=== PATIENT | male | born 1990 | race Caucasian/White ===

== ENCOUNTER 2017-02-09 00:06 | Emergency (ER) | payer SELFPAY ==
[~2017-02-09] VITALS: Ht 180.3 cm; Wt 61.1 kg
[2017-02-09 00:11] VITALS: BP 121/80; PULSE 89; RESP 16; TEMP 98.7; O2SAT 95
[2017-02-09] MEDS ORDERED: SODIUM CHLOR 0.9% 1000 ML INJ 1,000 ML IV SCH (00:22)
--- NOTE | 2017-02-09 00:26 | PD ---
HPI Chief Complaint: GI Complaint Time Seen by Provider: 00:22 Travel History International Travel<30 days: No Contact w/Intl Traveler<30days: No Traveled to known affect area: No History of Present Illness HPI 26-year-old male presents to the emergency department for complaint of 5 days of vomiting. Patient denies any diarrhea. Patient's continued to have good urine output. Patient is able to tolerate small amounts of fluids but no solids. Patient states symptoms began after eating 4 pieces of pizza at [employer]. No dietary indiscretion or well water ingestion or foreign travel. Significant other ate the same food is asymptomatic. Patient's had no fever or chills. Patient has had bilious emesis with no coffee-ground emesis and no hematemesis. No melena hematochezia. No prior history of abdominal pain. Patient denies personal history of gastritis peptic ulcer disease biliary colic pancreatitis inflammatory bowel disease Crohn's ulcer colitis or known diverticular disease. Patient is status post appendectomy. Patient takes no prescription medications. Patient occasionally drinks alcohol socially but not recently. Significant other has given him Pedialyte PFSH Past Medical History Narrative Medical Appendectomy; occasional alcohol use; nursing notes reviewed Medical History: Denies Significant Hx Diminished Hearing: No Tetanus Vaccination: > 5 Years Influenza Vaccination: No Past Surgical History Appendectomy: Yes Social History Alcohol Use: Yes (Socially) Tobacco Use: No Substance Use: No Allergies-Medications (Allergen,Severity, Reaction): Coded Allergies: No Known Allergies (Unverified , 02/09/17) Narrative Medication None Review of Systems Except as stated in HPI: all other systems reviewed are Neg General / Constitutional: No: Fever, Chills HENT: No: Congestion Cardiovascular: No: Chest Pain or Discomfort Respiratory: No: Shortness of Breath Gastrointestinal: Positive: Nausea, Vomiting, Constipation, No: Diarrhea, Abdominal Pain, Hematemesis, Hematochezia, Loss of Appetite Genitourinary: No: Urgency, Frequency, Dysuria, Flank Pain Musculoskeletal: No: Weakness Skin: No Rash Neurologic: No: Weakness Psychiatric: No: Substance Abuse Hematologic/Lymphatic: No: Lymph Node Enlargement Physical Exam Narrative GENERAL: Well-developed well-nourished male in no acute distress no respiratory distress; triage vital signs found to be in normal range SKIN: Warm and dry. HEAD: Normocephalic. EYES: No scleral icterus. No injection or drainage. NECK: Supple, trachea midline. No JVD or lymphadenopathy. CARDIOVASCULAR: Regular rate and rhythm without murmurs, gallops, or rubs. RESPIRATORY: Breath sounds equal bilaterally. No accessory muscle use. GASTROINTESTINAL: Abdomen soft, non-tender, nondistended. MUSCULOSKELETAL: No cyanosis, or edema. BACK: Nontender without obvious deformity. No CVA tenderness. Data Data Last Documented VS Vital Signs Date Time Temp Pulse Resp B/P (MAP) Pulse Ox O2 Delivery O2 Flow Rate FiO2 02/09/17 02:20 76 18 134/72 (92) 96 Room Air 02/09/17 01:25 98.7 Orders Orders Complete Blood Count With Diff (02/09/17 00:22) Comprehensive Metabolic Panel (02/09/17 00:22) Lipase (02/09/17 00:22) Urinalysis - C+S If Indicated (02/09/17 00:22) Iv Access Insert/Monitor (02/09/17 00:22) Ecg Monitoring (02/09/17 00:22) Oximetry (02/09/17 00:22) Ondansetron Inj (Zofran Inj) (02/09/17 00:30) Sodium Chlor 0.9% 1000 Ml Inj (Ns 1000 M (02/09/17 00:22) Sodium Chloride 0.9% Flush (Ns Flush) (02/09/17 00:30) Ct Abd/Pel W Iv Contrast(Rout) (02/09/17 ) Ecg Monitoring (02/09/17 02:03) Famotidine Inj (Pepcid Inj) (02/09/17 02:15) Sodium Chloride 0.9% Flush (Ns Flush) (02/09/17 02:15) Ondansetron Inj (Zofran Inj) (02/09/17 03:00) Iohexol 350 Inj (Omnipaque 350 Inj) (02/09/17 02:45) Ed Discharge Order (02/09/17 03:32) Labs Laboratory Tests Test 02/09/17 00:25 02/09/17 02:07 White Blood Count 15.9 TH/MM3 Red Blood Count 5.45 MIL/MM3 Hemoglobin 15.9 GM/DL Hematocrit 49.0 % Mean Corpuscular Volume 90.0 FL Mean Corpuscular Hemoglobin 29.2 PG Mean Corpuscular Hemoglobin Concent 32.4 % Red Cell Distribution Width 11.8 % Platelet Count 277 TH/MM3 Mean Platelet Volume 7.1 FL Neutrophils (%) (Auto) 75.5 % Lymphocytes (%) (Auto) 16.6 % Monocytes (%) (Auto) 7.2 % Eosinophils (%) (Auto) 0.3 % Basophils (%) (Auto) 0.4 % Neutrophils # (Auto) 12.1 TH/MM3 Lymphocytes # (Auto) 2.6 TH/MM3 Monocytes # (Auto) 1.1 TH/MM3 Eosinophils # (Auto) 0.0 TH/MM3 Basophils # (Auto) 0.1 TH/MM3 CBC Comment DIFF FINAL Differential Comment Blood Urea Nitrogen 17 MG/DL Creatinine 0.95 MG/DL Random Glucose 96 MG/DL Total Protein 7.5 GM/DL Albumin 3.8 GM/DL Calcium Level 8.8 MG/DL Alkaline Phosphatase 62 U/L Aspartate Amino Transf (AST/SGOT) 17 U/L Alanine Aminotransferase (ALT/SGPT) 26 U/L Total Bilirubin 0.5 MG/DL Sodium Level 131 MEQ/L Potassium Level 3.7 MEQ/L Chloride Level 96 MEQ/L Carbon Dioxide Level 27.4 MEQ/L Anion Gap 8 MEQ/L Estimat Glomerular Filtration Rate 96 ML/MIN Lipase 113 U/L Urine Color EMMY Urine Turbidity CLEAR Urine pH 6.5 Urine Specific Halma 1.027 Urine Protein NEG mg/dL Urine Glucose (UA) NEG mg/dL Urine Ketones 15 mg/dL Urine Occult Blood NEG Urine Nitrite NEG Urine Bilirubin NEG Urine Leukocyte Esterase NEG Urine RBC 0-2 /hpf Urine WBC 0-2 /hpf Urine Squamous Epithelial Cells 0-5 /hpf Urine Bacteria NONE /hpf Microscopic Urinalysis Comment CULT NOT INDICATED MDM Medical Decision Making Medical Screen Exam Complete: Yes Emergency Medical Condition: Yes Medical Record Reviewed: Yes Interpretation(s) CBC & BMP Diagram 02/09/17 00:25 Total Protein 7.5, Albumin 3.8, Calcium Level 8.8, Alkaline Phosphatase 62, Aspartate Amino Transf (AST/SGOT) 17, Alanine Aminotransferase (ALT/SGPT) 26, Total Bilirubin 0.5 Vital Signs Date Time Temp Pulse Resp B/P (MAP) Pulse Ox O2 Delivery O2 Flow Rate FiO2 02/09/17 02:20 76 18 134/72 (92) 96 Room Air 02/09/17 01:25 98.7 75 16 123/72 (89) 97 Room Air 02/09/17 01:09 122/69 (86) 02/09/17 01:00 16 94 Room Air 02/09/17 00:11 98.7 89 16 121/80 (94) 95 CT abd/pel: CONCLUSION: 1. The stomach is mildly distended. There is mild constipation. No obstruction, free fluid or free air. Small right renal cyst. Antwon Lee MD on February 09, 2017 at 2:59 Board Certified Radiologist. This report was verified electronically. Differential Diagnosis Vomiting, bowel obstruction, biliary colic, cholecystitis, pancreatitis, peptic ulcer disease, perforated viscus, inflammatory bowel disease, gastroenteritis, electronic disturbance, dehydration Narrative Course IV access obtained specimens collected and sent for resulting patient administered 1 L normal saline and Zofran 4 mg IV along with Pepcid 20 mg IV White count is 15,000; CT abdomen and pelvis ordered CT abdomen and pelvis reveals no acute intra-abdominal process mild constipation Patient clinically improved off and additional liter of normal saline patient refuses any further IV fluids able take fluids by mouth does complain of nausea additional dose of Zofran administered and no further nausea or vomiting Patient is stable for outpatient management Diagnosis Primary Impression: Vomiting Referrals: Primary Care Physician call for appointment Patient Instructions: General Instructions Departure Forms: Tests/Procedures, Work Release Special Instructions: no work x2 days Additional Instructions: Follow clear liquid diet for next 12 to 24 hours advance diet as tolerated to bland/Mayela diet and advance to regular diet as tolerated Increase fluid hydration Monitor temperature for fever take acetaminophen/Tylenol as needed for fever 100.4F or greater Follow-up with your primary care provider Return to the emergency department for any concerns or change in condition No work 2 days Med/Other Pt SpecificInfo: Prescription(s) given Scripts Ondansetron Odt (Zofran Odt) 4 Mg Tab 4 MG SL Q6HR Y for Nausea/Vomiting, #10 TAB 0 Refills Prov: Zoe Murguia MD 02/09/17 Disposition: 01 DISCHARGE HOME Condition: Stable Zoe Murguia MD Feb 09, 2017 00:25
[2017-02-09] MEDS ORDERED: ONDANSETRON HCL 4 MG/2 ML VIAL IVP ONE (00:30)
[2017-02-09] MEDS ORDERED: SODIUM CHLORIDE 0.9% FLUSH 10 ML FLUSH IV FLUSH PRN ×2 (00:30→02:15)
[2017-02-09 00:49] LABS: AUTOMATED NEUTROPHIL # 12.1 TH/MM3 (1.8-7.7); BASOPHIL # 0.1 TH/MM3 (0-0.2); BASOPHIL % 0.4 % (0.0-2.0); EOSINOPHIL % 0.3 % (0.0-4.0); HEMO FLAGS DIFF FINAL; LYMPH % 16.6 % (9.0-44.0); LYMPHOCYTE # 2.6 TH/MM3 (1.0-4.8); MEAN CORPUSCULAR HEMOGLOBIN 29.2 PG (27.0-34.0); MEAN CORPUSCULAR HGB CONC 32.4 % (32.0-36.0); MONO % 7.2 % (0.0-8.0); NEUT % 75.5 % (16.0-70.0); PLATELET COUNT 277 TH/MM3 (150-450); RED BLOOD COUNT 5.45 MIL/MM3 (4.50-5.90); RED CELL DISTRIBUTION WIDTH 11.8 % (11.6-17.2); WHITE BLOOD COUNT 15.9 TH/MM3 (4.0-11.0)
[2017-02-09 00:58] LABS: CHLORIDE 96 MEQ/L (98-107); POTASSIUM 3.7 MEQ/L (3.5-5.1); SODIUM (NA) 131 MEQ/L (136-145)
[2017-02-09 01:00] VITALS: RESP 16; O2SAT 94
[2017-02-09 01:02] LABS: ANION GAP 8 MEQ/L (5-15); BICARBONATE 27.4 MEQ/L (21.0-32.0); BLOOD UREA NITROGEN 17 MG/DL (7-18)
[2017-02-09 01:04] LABS: ALT (GPT) 26 U/L (12-78); AST (GOT) 17 U/L (15-37)
[2017-02-09 01:05] LABS: GLOMERULAR FILTRATION RATE 96 ML/MIN (>89)
[2017-02-09 01:06] LABS: TOTAL BILIRUBIN ADULT 0.5 MG/DL (0.2-1.0)
[2017-02-09 01:07] LABS: ALKALINE PHOSPHATASE 62 U/L (45-117)
[2017-02-09 01:09] VITALS: BP 122/69
[2017-02-09 01:25] VITALS: BP 123/72; PULSE 75; RESP 16; TEMP 98.7; O2SAT 97
[2017-02-09] MEDS ORDERED: FAMOTIDINE 20 MG/2 ML VIAL IV PUSH ONE (02:15)
[2017-02-09 02:16] LABS: BLOOD, URINE NEG (NEG); GLUCOSE,URINE NEG (NEG); KETONE, URINE 15 mg/dL (NEG); NITRITE,URINE NEG (NEG); PH, URINE 6.5 (5.0-8.5)
[2017-02-09 02:20] VITALS: BP 134/72; PULSE 76; RESP 18; O2SAT 96
[2017-02-09] MEDS ORDERED: IOHEXOL 350 MG/ML 10 ML VIAL (for RAD DIAG) IVCONTRAST ONE (02:45)
[2017-02-09 02:46] LABS: COMMENT (UR) CULT NOT INDICATED; CULTURE IF INDICATED CULT NOT INDICATED; RBC, URINE 0-2 /hpf (0-3); SQUAMOUS EPITHELIAL CELL URINE 0-5 /hpf (0-5); URINE COLOR AMBER (YELLW/STRAW); WBC, URINE 0-2 /hpf (0-5)
[2017-02-09] MEDS ORDERED: ONDANSETRON HCL 4 MG/2 ML VIAL IV PUSH ONE (03:00)
--- NOTE | 2017-02-09 03:04 | RADRPT ---
EXAM DATE/TIME: 02/09/2017 02:40 [facility] COMPARISON: No previous studies available for comparison. INDICATIONS : Vomiting and constipation for 5 days IV CONTRAST: 96 cc Omnipaque 350 (iohexol) IV ORAL CONTRAST: No oral contrast ingested. RADIATION DOSE: 4.15 CTDIvol (mGy) MEDICAL HISTORY : None SURGICAL HISTORY : Appendectomy. ENCOUNTER: Initial ACUITY: 4 - 6 days PAIN SCALE: 9/10 LOCATION: medial abdomen TECHNIQUE: Volumetric scanning of the abdomen and pelvis was performed. Using automated exposure control and ad justment of the mA and/or kV according to patient size, radiation dose was kept as low as reasonably achievable to obtain optimal diagnostic quality images. DICOM format image data is available electro nically for review and comparison. FINDINGS: LOWER LUNGS: The visualized lower lungs are clear. LIVER: Homogeneous density without lesion. There is no dilation of the biliary tree. No calcified gallston es. SPLEEN: Normal size without lesion. PANCREAS: Within normal limits. KIDNEYS: Normal in size and shape. There is no mass, stone or hydronephrosis. ADRENAL GLANDS: Within normal limits. VASCULAR: There is no aortic aneurysm. BOWEL/MESENTERY: The stomach, small bowel, and colon demonstrate no acute abnormality. There is no free intraperitone al air or fluid. ABDOMINAL WALL: Within normal limits. RETROPERITONEUM: There is no lymphadenopathy. BLADDER: No wall thickening or mass. REPRODUCTIVE: Within normal limits. INGUINAL: There is no lymphadenopathy or hernia. MUSCULOSKELETAL: Within normal limits for patient age. CONCLUSION: 1. The stomach is mildly distended. There is mild constipation. No obstruction, free fluid or free ai r. Small right renal cyst. Antwon Lee MD on February 09, 2017 at 2:59 Board Certified Radiologist. This report was verified electronically.
[2017-02-09] MEDS ORDERED: ZOFR4TAB3 SL (03:37)
[2017-02-09 04:07] VITALS: BP 162/91; TEMP 98.8
== END 2017-02-09 04:07 | disposition home or self-care (01) ==
LOC: PHED 00:06
DX: R11.10 Vomiting, unspecified (principal)
CPT/HCPCS: 74177; 80053; 81001; 83690; 85025; 96361; 96374; 96375; 96376; 99285; J2405; J7030; Q9967

== ENCOUNTER 2017-06-26 11:55 | Emergency (ER) | payer SELFPAY ==
[~2017-06-26] VITALS: Ht 180.3 cm; Wt 69.6 kg
[~2017-06-26 11:55] MED LIST: ZOFR4TAB3 SL
[2017-06-26 12:00] VITALS: BP 121/64; PULSE 81; RESP 18; TEMP 97.9; O2SAT 98
[2017-06-26] MEDS ORDERED: LIDOCAINE 1%/EPINEPHrine 1:100,000 SOLN 20 ML VIAL INFIL ONE (12:30)
[2017-06-26] MEDS ORDERED: BACT800T5 PO (12:41)
[2017-06-26] MEDS ORDERED: DICL75TA PO (12:41)
--- NOTE | 2017-06-26 12:45 | PD ---
HPI Chief Complaint: Skin Problem Time Seen by Provider: 12:23 Travel History International Travel<30 days: No Contact w/Intl Traveler<30days: No Traveled to known affect area: No History of Present Illness HPI 27-year-old male that presents to the ED for evaluation of lump to the left jaw. Patient has had this for about 3-4 weeks. Per patient he started like a small pimple. Per patient is presently getting worse. Per patient he took an antibiotic from his girlfriend who was having some dental procedures some relief and improvement of the symptoms continued and the swelling still there. Patient himself denies any dental pain. Per patient he thought he might be coming from his tooth. He denies any urinary or bowel movement issues. No chest pain or shortness of breath. No fevers chills or sweats. No history of drug abuse. No allergies to medication. He is not sure what antibiotic he took but thinks it was penicillin. PFSH Past Medical History Diminished Hearing: No Past Surgical History Appendectomy: Yes Social History Alcohol Use: Yes (Socially) Tobacco Use: No Substance Use: No Allergies-Medications (Allergen,Severity, Reaction): Coded Allergies: No Known Allergies (Unverified Adverse Reaction, Unknown, 06/26/17) Reported Meds & Prescriptions Reported Meds & Active Scripts Active Diclofenac Sodium DR (Diclofenac Sodium) 75 Mg Tabdr 75 Mg PO BID PRN Bactrim DS (Sulfamethoxazole-Trimethoprim) 800-160 Mg Tab 1 Tab PO BID 10 Days Zofran Odt (Ondansetron Odt) 4 Mg Tab 4 Mg SL Q6HR PRN Review of Systems Except as stated in HPI: all other systems reviewed are Neg Physical Exam Narrative GENERAL: SKIN: Warm and dry. HEAD: Atraumatic. Normocephalic. EYES: Pupils equal and round. No scleral icterus. No injection or drainage. ENT: No nasal bleeding or discharge. Mucous membranes pink and moist. Tongue is midline. No uvula deviation. Patient has a abscess/cyst on the left lower jaw. About 1.5 cm in diameter mobile, tender and erythematous. Purulence noted. NECK: Trachea midline. No JVD. CARDIOVASCULAR: Regular rate and rhythm. RESPIRATORY: No accessory muscle use. Clear to auscultation. Breath sounds equal bilaterally. GASTROINTESTINAL: Abdomen soft, non-tender, nondistended. Hepatic and splenic margins not palpable. MUSCULOSKELETAL: Extremities without clubbing, cyanosis, or edema. No obvious deformities. NEUROLOGICAL: Awake and alert. No obvious cranial nerve deficits. Motor grossly within normal limits. Five out of 5 muscle strength in the arms and legs. Normal speech. PSYCHIATRIC: Appropriate mood and affect; insight and judgment normal. Data Data Last Documented VS Vital Signs Date Time Temp Pulse Resp B/P (MAP) Pulse Ox O2 Delivery O2 Flow Rate FiO2 06/26/17 12:00 97.9 81 18 121/64 (83) 98 Orders Orders Wound Culture And Gram Stain (06/26/17 12:23) Wound Care (06/26/17 12:23) Lidocai-Epi 1%-1:100,000 Inj (Xylocaine- (06/26/17 12:30) MDM Medical Decision Making Medical Screen Exam Complete: Yes Emergency Medical Condition: Yes Medical Record Reviewed: Yes Differential Diagnosis abscess versus dental infection versus infected cyst Narrative Course 27-year-old male that presents to the ED for evaluation of skin abscesses/cyst. Patient was properly examined and was found to have signs and symptoms consistent with appears to be an infected cyst on the left lower jaw. Per recommendation his incision and drainage. Patient agrees. Patient will be started on Bactrim and diclofenac sodium. Cultures were taken. Told to follow closely with PCP. See ED worsening symptoms. Procedures Procedure Narrative After the risks and benefits were discussed the following procedure was performed: INCISION AND DRAINAGE OF ABSCESS: The area was prepped and was sterilely draped. A subcutaneous wheal of 1 % Xylocaine with a total number 5 mL was used to anesthetize the area. The area was properly anesthetized. A number 11 scalpel was used to make a 0.5 -cm incision across the area of the abscess. Cultures were obtained. The abscess was drained an irrigated with normal saline. Quarter inch iodoform packing was placed in the wound. Sterile dressing applied. Patient advised to have packing removed in two days. Diagnosis Primary Impression: Infected cyst of skin Patient Instructions: General Instructions Additional Instructions: Change dressings daily. Motrin or Tylenol for pain. Warm compresses. recheck in 48 hours if no improvement. Take meds as prescribed. Med/Other Pt SpecificInfo: Prescription(s) given Scripts Diclofenac Sodium (Diclofenac Sodium DR) 75 Mg Tabdr 75 MG PO BID Y for PAIN SCALE 1 TO 10, #20 TAB 0 Refills Prov: Linda Salmeron MD 06/26/17 Sulfamethoxazole-Trimethoprim (Bactrim DS) 800-160 Mg Tab 1 TAB PO BID for Infection for 10 Days, #20 TAB 0 Refills Prov: Linda Salmeron MD 06/26/17 Disposition: 01 DISCHARGE HOME Condition: Stable Carlos Calderon Jun 26, 2017 12:45
[2017-06-26] MEDS ORDERED: LIDOCAINE 1%/EPINEPHrine 1:100,000 SOLN 30 ML VIAL INFIL ONE (13:00)
== END 2017-06-26 13:25 | disposition home or self-care (01) ==
LOC: PHED 11:55 → PHEFT 13:25
DX: L72.8 Other follicular cysts of the skin and subcutaneous tissue (principal); L08.89 Other specified local infections of the skin and subcutaneous tissue; B96.89 Other specified bacterial agents as the cause of diseases classified elsewhere
CPT/HCPCS: 10061; 86403; 87070; 87185